=== PATIENT | male | born 1950 | race Caucasian/White ===

== ENCOUNTER → 2021-03-08 | Outpatient (CLI) | payer MEDICARE, OTHER ==
[~2021-03-08] MED LIST: NORCO 5-325 TA1 EACH PO
[2021-03-08 14:56] LABS: RED BLOOD COUNT 5.04 M/UL (4.20-5.50); WHITE BLOOD COUNT 3.2 K/UL (4.5-11.0)
[2021-03-09 08:15] LABS: TESTOSTERONE, SERUM 227 ng/dL (264-916)
[2021-03-09 15:10] LABS: LYME IGG/IGM AB <0.91 ISR (0.00-0.90)
[2021-03-09 16:54] LABS: BUN/CREATININE RATIO 15 (0-10)
== END ==
LOC: LAB 13:47
PROVIDERS: Nurse Practitioner Family
DX: R53.83 Other fatigue (principal); M79.10 Myalgia, unspecified site; E34.9 Endocrine disorder, unspecified; I10 Essential (primary) hypertension; E78.5 Hyperlipidemia, unspecified; Z12.5 Encounter for screening for malignant neoplasm of prostate; W57.XXXA Bitten or stung by nonvenomous insect and other nonvenomous arthropods, initial encounter
CPT/HCPCS: 36415; 80053; 80061; 81001; 84403; 84436; 84443; 84480; 85025; 86618; 86757; G0103

== ENCOUNTER → 2021-09-14 | Outpatient (CLI) | payer MEDICARE, OTHER | LOC: HEART 5 08-28 08:15 | DX: I49.3 Ventricular premature depolarization (principal); I47.2 Ventricular tachycardia; I11.0 Hypertensive heart disease with heart failure; I50.9 Heart failure, unspecified; I48.0 Paroxysmal atrial fibrillation; I25.5 Ischemic cardiomyopathy; E78.5 Hyperlipidemia, unspecified; R00.2 Palpitations; R60.0 Localized edema; R07.9 Chest pain, unspecified; R06.02 Shortness of breath | CPT/HCPCS: 78452; A9502; J2785 ==

== ENCOUNTER → 2021-10-05 | Outpatient (CLI) | payer MEDICARE, OTHER ==
[2021-10-05 13:56] LABS: RED BLOOD COUNT 5.35 M/UL (4.20-5.50); WHITE BLOOD COUNT 8.1 K/UL (4.5-11.0)
[2021-10-05 14:31] LABS: BUN/CREATININE RATIO 24 (0-10)
[2021-10-06 08:14] LABS: THYROXINE (T4) 7.8 ug/dL (4.5-12.0)
== END ==
LOC: LAB 12:52
PROVIDERS: Nurse Practitioner Family
DX: Z12.5 Encounter for screening for malignant neoplasm of prostate (principal); Z13.1 Encounter for screening for diabetes mellitus; I10 Essential (primary) hypertension; E78.5 Hyperlipidemia, unspecified; R53.83 Other fatigue
CPT/HCPCS: 80053; 80061; 81001; 83036; 84436; 84443; 84480; 85025; G0103